=== PATIENT | female | born 1985 | race Caucasian/White ===

== ENCOUNTER 2016-12-29 19:29 | Emergency (ER) | payer OTHER ==
[~2016-12-29] VITALS: Ht 182.9 cm; Wt 136.1 kg
[~2016-12-29 19:29] MED LIST: AVIANE 0.02 MG-1 TAB PO; KEFLEX 500MG.500 MG PO; LEVOTHYROXINE0.1 M1 PO; METOPROLOL SUCC25 M2 PO; PREVACID 30MG C30 M1 PO
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
--- OUTSIDE RECORDS SUMMARY | 2016-12-29 19:35 | External Medical Summary Rpt ---
Demographics Preferred Language Nepalese Marital Status Unknown [employer] Affiliation Unknown Race Unknown Ethnic Group Unknown Author Author , Organization [employer] Address Unknown Phone Unavailable Purpose Continuity of Care Document - through 2016 Immunization No patient found.
--- OUTSIDE RECORDS SUMMARY | 2016-12-29 19:35 | External Medical Summary Rpt ---
Author Author [employer] Organization [employer] Address Unknown Phone Unavailable Purpose Continuity of Care Document - through 2016
--- OUTSIDE RECORDS SUMMARY | 2016-12-29 19:35 | External Medical Summary Rpt ---
Demographics Preferred Language Hungarian Marital Status Unknown [employer] Affiliation Unknown Race Unknown Ethnic Group Unknown Author Author , Organization [employer] Address Unknown Phone Unavailable Purpose Continuity of Care Document - through 2016 Immunization No patient found.
[2016-12-29] MEDS ORDERED: CARVEDILOL6.25 M1 PO (19:40)
[2016-12-29] MEDS ORDERED: LEVOTHYROXIN0.125 M1 PO (19:41)
[2016-12-29] MEDS ORDERED: ESCITALOPRAM10 M1 PO (19:41)
[2016-12-29] MEDS ORDERED: NEXIUM40 MG/PACK PO (19:42)
[2016-12-29] MEDS ORDERED: ZITHROMAX Z PA250 MG PO (19:51)
[2016-12-29] MEDS ORDERED: BROMFED DM COU118 ML PO (19:51)
[2016-12-29] MEDS ORDERED: FLONASE 50 MCG16 GM (19:51)
[2016-12-29] MEDS ORDERED: MEDROL 4MG. DOSE4 MG PO (19:51)
--- NOTE | 2016-12-29 19:51 | Urgent Treatment Center Report ---
History of Present Issue Date/Time Seen by Provider 12/29/161946 Visit Reason Pt arrived:Walked Presenting Problem:PT STATES SORE THROAT, FEVER, SWOLLEN LYMPH NODE, PAIN TO BACK/SHOULDER/ NECK THAT BEGAN THIS MORNING Location if Accident: Onset of symptoms date/time:12/29/16/ or onset unknown for:MEDICAL HX UNKNOWN Have you (or family members/close friends) recently traveled outside the [place]? N If Yes, where/when: Have you had exposure to infectious disease within the past month? TB? Other? Specify: Patient state that she has not been feeling well states that she has had cough, congestion fever, sorethroat, swollen lymph nodes states that she has continued to feel worse as the day went on States that she has body aches and just over all does not feel well ALLERGIES Coded Allergies: No Known Allergies (09/01/15) Home Medications Reported Medications LEVONORGESTREL-ETHIN ESTRADIOL (Aviane-28 Tablet) 1 TAB PO DAILY #84 Carvedilol 6.25 MG PO DAILY #60 Levothyroxine Sodium 0.125 MG PO DAILY #30 Escitalopram Oxalate 10 MG PO NIGHTLY #30 Esomeprazole Magnesium (Nexium) 40 MG PO NIGHTLY History Medical History General CAD? No Angina: No LA: No Hypertension? Yes Hyperlipidemia? No CHF? No DVT? No PE? No COPD? No Asthma? No Anemia? No GERD? Yes Gastric ulcers? No GI Bleed? No Hernia? No Thyroid Problems? Yes Hypothyroidism? Yes CVA? No Seizures? No Diabetes? No Renal Insuffiency? No UTI? No Stones? No BPH? No GB Disease: No Nephritic Syndrome? No Asplenia? No Hepatitis? No Sickle Cell Disease? No Arthritis? No Migraines? No Cataracts? No Glaucoma? No MRSA? No HIV? No TB? No Anxiety? No Depression? No Cancer? No Immunization HX DT/Tetanus 05/02/08 Surgical Hx Previous Surgery?Y WISDOM TEETH EXTRACTION BR[employer] SURVEYING Hx LMP 3 Weeks Ago Social History Smoking Hx Smoker: Current Every Day Smoker Tobacco: Yes Type Cigarettes Alcohol Alcohol: Yes Review of Systems All Other Systems Reviewed and Negative Comment Patient complaining of sorethroat, fever, body aches states that she hurts in her back when she coughs states that she had strep test done earlier and it was negative. Physical Exam Vital Signs Vital Signs Date Time Temp Pulse Resp B/P Pulse O2 O2 Flow FiO2 Ox Delivery Rate 12/29 1936 98.7 86 18 172/84 96 General Appearance Patient appears ill, pale in color not feeling well Ear, Nose, Throat sinus pain/drainage, nasal congestion, throat red and irritated, drainage noted greenish color mucous noted nares red Respiratory Status Yes: trachea midline, chest symmetrical, non tender chest. No: respiratory distress. Cardiovascular normal exam, regular rate/rhythm, no peripheral edema Neurologic alert, ballaster II-XII nml as tested, normal exam, no motor/sensory deficits, oriented x 3 Medical Decision Making LABS/Meds/Orders Pt receiving controlled substance in ED? No Departure Departure Time of Disposition 1944 Disposition DC Home or Self Care(routine) Clinical Impression Primary Impression: Upper respiratory infection Qualifiers: URI type: unspecified URI Qualified Code: J06.9 - Acute upper respiratory infection, unspecified Condition STABLE Referrals Mohan AGUILAR,Khris (Family) Patient Instructions DI for Nasal Congestion, Sore Throat Additional Instructions * Monitor Temp. Tylenol and/or Ibuprofen as needed. ER if fever is no less than 101 despite alternating Tylenol and Ibuprofen * Encourage fluids, water, Gatorade, powerade, pedialyte if /toddler/or child * Warm salt water gargles for throat irritation *Warm fluids *Sore throat lozenges *Sleep elevated *humidifier or vaporizer *Flonase 2 sprays each nostril daily but may take 2-3 days to notice improvement with it *Bromfed may cause drowsiness. Know how it effect you or your child. Before driving, caring for small children or sending your child to school Follow up IMMEDIATELY for new or worsening of symptoms OR no noticeable improvement over the next 48-72 hours. 911 immediately for any life threatening symptoms such as chest pain or difficulty breathing Discharge Counseling Counseled pt/family regarding diagnosis, medications/RX, home care, follow up needs Prescriptions Current Visit Scripts Azithromycin (Zithromycin (Z-RAJINDER) 250MG Tab) 250 MG PO DAILY #6 TAB TAKE TWO (2) TABLETS ON DAY 1, THEN ONE (1) TABLET DAY #2 THRU #5 D-METHORPHAN HB/P-EPD HCL/BPM (Bromfed Dm Cough Syrup) 10 ML PO Q4HP PRN cough #120 SYR Fluticasone Propionate (Flonase 50 Mcg Nasal [place]) 2 SPRAY NA DAILY #1 BOT Methylprednisolone (Medrol Dose Rajinder) 4 MG PO UD #1 RAJINDER TAKE DIRECTED ON PACKAGING at 1953
[2016-12-29 19:57] VITALS: BP 172/84
== END 2016-12-29 19:57 | disposition home or self-care (01) ==
LOC: UTC 19:29
DX: J06.9 Acute upper respiratory infection, unspecified (principal); Z72.0 Tobacco use